=== PATIENT | male | born 1995 | race Caucasian/White ===

== ENCOUNTER 2017-09-14 20:36 | Emergency (ER) | payer BC ==
[2017-09-14] MEDS ORDERED: ONDANSETRON 4 MG/2 ML VIAL ONE (20:46)
[2017-09-14] MEDS ORDERED: ONDANSETRON 4 MG/2 ML VIAL IVP ONE ×2 (20:50→20:51)
[2017-09-14] MEDS ORDERED: NS 1,000 ML IV ONE ×2 (20:50)
[2017-09-14] MEDS ORDERED: LORazepam 2 MG/ML INJ IVP ONE (20:51)
[2017-09-14] MEDS ORDERED: NS 2,000 ML IV ONE (20:51)
[2017-09-14 21:04] LABS: PLATELET COUNT 323 10^3/uL (150-400)
[2017-09-14 21:32] VITALS: PULSE 88; O2SAT 100
[2017-09-14] MEDS ORDERED: ACETAMINOPHEN 500 MG TAB PO ONE (21:52)
[2017-09-14] MEDS ORDERED: ONDANSETRON 4MG PREPACK#2 BTL TAKEHOME ONE (22:18)
--- NOTE | 2017-09-14 22:18 | EDPHY ---
H & P Stated Complaint: n/v hyperventilating. HPI/ROS: Chief complaint: Nausea, vomiting and diarrhea History of present illness: This is a 21-year-old male who presents to the emergency department for evaluation of nausea, vomiting and diarrhea. He reports the onset of symptoms a few hours ago. Initially vomiting followed by diarrhea. Symptoms have been persistent. No blood in vomit or diarrhea reported. Further reports he is feeling somewhat short of breath, he is feeling anxious. He does have a history of anxiety and this feels similar. No report of fever. No report of abdominal pain. He denies precipitating factors. He denies alleviating factors. He denies other associated signs or symptoms. There has been no sick contacts, no recent antibiotic use, no recent foreign travel. Review of systems: A 10 point review of systems was obtained and other than described above was negative - Personal History Current Tetanus Diphtheria and Acellular Pertussis (TDAP): Unsure - Medical/Surgical History Hx Asthma: No Hx Chronic Respiratory Disease: No Hx Diabetes: No Hx Cardiac Disease: No Hx Renal Disease: No Hx Cirrhosis: No Hx Alcoholism: No Hx HIV/AIDS: No Hx Splenectomy or Spleen Trauma: No Other PMH: anxiety - Social History Smoking Status: Never smoked - Physical Exam Exam: General Appearance: Alert, appears anxious. Eyes: Pupils equal and round no pallor or injection. ENT, Mouth: Mucous membranes moist. Respiratory: There are no retractions, lungs are clear to auscultation. Cardiovascular: Regular rate and rhythm. Gastrointestinal: Abdomen is soft and non tender, no masses, bowel sounds normal. Neurological: Alert and oriented x4. Strength and sensation intact and symmetrical. Skin: Warm and dry, no rashes. Musculoskeletal: Neck is supple non tender. Extremities are symmetrical, full range of motion. Psychiatric: Patient is oriented X 3, there is no agitation. Constitutional: Initial Vital Signs Heart Rate 105 H 09/14/17 20:39 Respiratory Rate 28 H 09/14/17 20:39 Blood Pressure 100/62 09/14/17 20:39 O2 Sat (%) 99 09/14/17 20:39 O2 Delivery Mode Room Air Allergies/Adverse Reactions: No Known Allergies Allergy (Unverified 09/14/17 20:38) Home Medications: Medication Instructions Recorded Ondansetron Odt [Zofran Odt 4 mg 4 mg PO Q4 #6 tab 09/14/17 (*)] Prozac 10 MG (*) 09/14/17 Medical Decision Making ED Course/Re-evaluation: Patient seen under the supervision of my secondary supervising physician Dr. Lasha Oro. Patient presents to the emergency department for nausea, vomiting and diarrhea. Further he has some trouble breathing with anxiety. He does have a history of anxiety. He is symptomatically treated. Reports significant improvement in symptoms. Tolerating oral challenges without difficulty. Difficulty breathing and anxiety have completely resolved. We have reviewed his blood studies. He does have a significant leukocytosis. Stress reaction versus potential infection. We have discussed pursuing a CT scan this evening, he has declined. I do believe this is okay at this time. Repeat abdominal exam prior to discharge remains benign. He is discharged home. Home care is discussed. He is to follow up with a primary care doctor for recheck. Strict return precautions were given. The patient voiced understanding and agreement with plan. Differential Diagnosis: Included but not limited to gastritis, gastroenteritis, biliary tract disease, pancreatitis, colitis, appendicitis, anxiety, electrolyte disturbances - Data Points Laboratory Results: Laboratory Results 09/14/17 20:51 09/14/17 20:51 09/14/17 09/14/17 20:51 20:51 WBC 20.37 10^3/uL H 10^3/uL (3.80-9.50) RBC 5.56 10^6/uL 10^6/uL (4.40-6.38) Hgb 17.4 g/dL g/dL (13.7-17.5) Hct 47.7 % % (40.0-51.0) MCV 85.8 fL fL (81.5-99.8) MCH 31.3 pg pg (27.9-34.1) MCHC 36.5 g/dL g/dL (32.4-36.7) RDW 12.6 % % (11.5-15.2) Plt Count 323 10^3/uL 10^3/uL (150-400) MPV 9.3 fL fL (8.7-11.7) Neut % (Auto) 86.2 % H % (39.3-74.2) Lymph % (Auto) 5.0 % L % (15.0-45.0) George % (Auto) 7.0 % % (4.5-13.0) Eos % (Auto) 1.0 % % (0.6-7.6) Baso % (Auto) 0.4 % % (0.3-1.7) Nucleat RBC Rel Count 0.0 % % (0.0-0.2) Absolute Neuts (auto) 17.56 10^3/uL H 10^3/uL (1.70-6.50) Absolute Lymphs (auto) 1.01 10^3/uL 10^3/uL (1.00-3.00) Absolute Monos (auto) 1.43 10^3/uL H 10^3/uL (0.30-0.80) Absolute Eos (auto) 0.21 10^3/uL 10^3/uL (0.03-0.40) Absolute Basos (auto) 0.08 10^3/uL 10^3/uL (0.02-0.10) Absolute Nucleated RBC 0.00 10^3/uL 10^3/uL (0-0.01) Immature Gran % 0.4 % % (0.0-1.1) Immature Gran # 0.08 10^3/uL 10^3/uL (0.00-0.10) Sodium 139 mEq/L mEq/L (135-145) Potassium 3.5 mEq/L mEq/L (3.5-5.2) Chloride 100 mEq/L mEq/L (97-110) Carbon Dioxide 15 mEq/l L mEq/l (22-31) Anion Gap 24 mEq/L H mEq/L (8-16) BUN 18 mg/dL mg/dL (7-23) Creatinine 1.2 mg/dL mg/dL (0.7-1.3) Estimated GFR > 60 Glucose 190 mg/dL H mg/dL (70-100) Calcium 10.6 mg/dL H mg/dL (8.5-10.4) Total Bilirubin 1.3 mg/dL mg/dL (0.1-1.4) Conjugated Bilirubin 0.4 mg/dL mg/dL (0.0-0.5) Unconjugated Bilirubin 0.9 mg/dL mg/dL (0.0-1.1) AST 25 IU/L IU/L (17-59) ALT 23 IU/L IU/L (21-72) Alkaline Phosphatase 63 IU/L IU/L (38-126) Total Protein 9.0 g/dL H g/dL (6.3-8.2) Albumin 5.7 g/dL H g/dL (3.5-5.0) Lipase 81 IU/L IU/L (23-300) Medications Given: Discontinued Medications Acetaminophen (Tylenol) 1,000 mg PO EDNOW ONE Stop: 09/14/17 21:53 Last Admin: 09/14/17 21:54 Dose: 1,000 mg Sodium Chloride (Ns) 1,000 mls @ 0 mls/hr IV EDNOW ONE; Wide Open PRN Reason: Protocol Stop: 09/14/17 20:51 Last Admin: 09/14/17 20:52 Dose: 1,000 mls Sodium Chloride (Ns) 1,000 mls @ 0 mls/hr IV EDNOW ONE; Wide Open PRN Reason: Protocol Stop: 09/14/17 20:51 Last Admin: 09/14/17 20:53 Dose: 1,000 mls Sodium Chloride (Ns) 2,000 mls @ 6,000 mls/hr IV ONCE ONE Stop: 09/14/17 21:10 Last Admin: 09/14/17 20:56 Dose: Not Given Lorazepam (Ativan Injection) 1 mg IVP EDNOW ONE Stop: 09/14/17 20:52 Last Admin: 09/14/17 20:57 Dose: 1 mg Ondansetron HCl (Zofran) 4 mg IVP EDNOW ONE Stop: 09/14/17 20:51 Last Admin: 09/14/17 20:53 Dose: Not Given Ondansetron HCl (Zofran) 4 mg IVP EDNOW ONE Stop: 09/14/17 20:52 Last Admin: 09/14/17 20:52 Dose: 4 mg Ondansetron HCl (Zofran Odt 4 Mg Prepack#2) 1 btl TAKEHOME EDNOW ONE Stop: 09/14/17 22:19 Last Admin: 09/14/17 22:33 Dose: 1 btl Departure - Departure Disposition: Home, Routine, Self-Care Clinical Impression: Nausea and vomiting Qualifiers: Vomiting type: unspecified Vomiting Intractability: non-intractable Qualified Code(s): R11.2 - Nausea with vomiting, unspecified Diarrhea Qualifiers: Diarrhea type: unspecified type Qualified Code(s): R19.7 - Diarrhea, unspecified Condition: Good Instructions: Ondansetron (By mouth), Acute Nausea and Vomiting (ED), Acute Diarrhea (ED) Additional Instructions: Follow-up with the primary care doctor in 1-2 days for recheck Use Zofran as directed as needed for nausea and vomiting You were offered a CT scan this evening, you declined If symptoms worsen or new symptoms develop return to the emergency room for recheck Referrals: NONE *PRIMARY CARE P,. [Primary Care Provider] - As per Instructions [facility],. [Clinic] - As per Instructions Prescriptions: Ondansetron Odt [Zofran Odt 4 mg (*)] 4 mg PO Q4 #6 tab
[2017-09-14 22:25] VITALS: BP 132/72; RESP 20; TEMP 99.3
== END 2017-09-14 22:36 | disposition home or self-care (01) ==
PROC: 3E0337Z Introduction of Electrolytic and Water Balance Substance into Peripheral Vein, Percutaneous Approach (ICD-10-PCS; principal; 2017-09-14)
DX: R11.2 Nausea with vomiting, unspecified (principal); R19.7 Diarrhea, unspecified; E86.9 Volume depletion, unspecified
CPT/HCPCS: 96374; J2060; J2405

== ENCOUNTER → 2017-11-14 | Outpatient (CLI) | payer BC | LOC: BMCIMAGING 16:28 | PROVIDERS: ATTEND Family Medicine | DX: M79.604 Pain in right leg (principal) ==